=== PATIENT | female | born 1975 | race Caucasian/White ===

== ENCOUNTER 2020-05-12 00:36 | Emergency (ER) | payer BC ==
[~2020-05-12] VITALS: Ht 152.4 cm; Wt 65.5 kg
[2020-05-12] MEDS ORDERED: ondansetron/PF 4mg/2ml inj IV ONE (02:45)
[2020-05-12] MEDS ORDERED: morphine 4 MG/ML inj SYRINge IV ONE (02:45)
[2020-05-12 03:10] LABS: BASOPHILS # (AUTO) 0.1 X10'3 (0-0.2); BASOPHILS % (AUTO) 0.7 % (0-1); EOSINOPHILS # (AUTO) 0.3 X10'3 (0-0.9); EOSINOPHILS % (AUTO) 2.9 % (0-6); HEMATOCRIT 30.3 % (35.0-45.0); HEMOGLOBIN 9.8 g/dl (12.0-16.0); LYMPHOCYTES # (AUTO) 1.1 X10'3 (1.1-4.8); LYMPHOCYTES % (AUTO) 10.1 % (21-51); MEAN CORPUSCULAR HEMOGLOBIN 28.6 PG (27.0-31.0); MEAN CORPUSCULAR HGB CONC 32.3 g/dL (33.0-36.5); MEAN CORPUSCULAR VOLUME 88.6 FL (78-98); MEAN PLATELET VOLUME 7.1 FL (7.4-10.4); MONOCYTES # (AUTO) 0.9 X10'3 (0-0.9); MONOCYTES % (AUTO) 7.9 % (2-12); NEUTROPHILS # (AUTO) 8.7 X10'3 (1.8-7.7); NEUTROPHILS % (AUTO) 78.4 % (42-75); PLATELET COUNT 506 X10'3 (140-440); RED BLOOD COUNT 3.42 X10'6 (4.20-5.60); RED CELL DISTRIBUTION WIDTH 15.7 % (11.5-14.5); WHITE BLOOD COUNT 11.1 X10'3 (4.5-11.0)
[2020-05-12] MEDS ORDERED: normal saline 1000ml 1,000 ML IV ONE (03:20)
[2020-05-12] MEDS ORDERED: metoclopramide 5 mg/ml inj IV ONE (03:25)
[2020-05-12] MEDS ORDERED: PROC-8 PO (04:11)
[2020-05-12 04:34] VITALS: BP 140/96
== END 2020-05-12 04:30 | disposition home or self-care (01) ==
LOC: ER 00:37
DX: M25.562 Pain in left knee (principal); Z48.89 Encounter for other specified surgical aftercare; R53.81 Other malaise; Z88.5 Allergy status to narcotic agent; Z88.8 Allergy status to other drugs, medicaments and biological substances; Z79.899 Other long term (current) drug therapy
CPT/HCPCS: 36415; 85025; 85651; 86140; 96374; 96375; 99284; J2270; J2405; J2765; J7030

== ENCOUNTER 2020-05-30 00:06 | Emergency (ER) | payer BC ==
[~2020-05-30] VITALS: Ht 152.4 cm; Wt 68.2 kg
[~2020-05-30 00:06] MED LIST: PROC-8 PO
--- NOTE | 2020-05-30 00:22 | NUR ---
pt states she took 15 mg percoset at approx 2140. She also states she had an infusion of ceftriaxone and Vancomycin today via PICC line.
[2020-05-30] MEDS ORDERED: normal saline 1000ML IV soln IV ONE (00:40)
[2020-05-30] MEDS ORDERED: ketorolac trometh. 30mg/ml inj. IV ONE (00:45)
[2020-05-30 01:43] LABS: BASOPHILS # (AUTO) 0.1 X10'3 (0-0.2); BASOPHILS % (AUTO) 0.6 % (0-1); EOSINOPHILS # (AUTO) 0.4 X10'3 (0-0.9); EOSINOPHILS % (AUTO) 4.3 % (0-6); HEMATOCRIT 29.7 % (35.0-45.0); LYMPHOCYTES # (AUTO) 0.9 X10'3 (1.1-4.8); LYMPHOCYTES % (AUTO) 9.7 % (21-51); MEAN CORPUSCULAR HEMOGLOBIN 28.7 PG (27.0-31.0); MEAN CORPUSCULAR HGB CONC 33.5 g/dL (33.0-36.5); MEAN CORPUSCULAR VOLUME 85.7 FL (78-98); MEAN PLATELET VOLUME 8.2 FL (7.4-10.4); MONOCYTES % (AUTO) 10.8 % (2-12); NEUTROPHILS # (AUTO) 6.7 X10'3 (1.8-7.7); NEUTROPHILS % (AUTO) 74.6 % (42-75); PLATELET COUNT 383 X10'3 (140-440); RED BLOOD COUNT 3.47 X10'6 (4.20-5.60); RED CELL DISTRIBUTION WIDTH 14.4 % (11.5-14.5)
[2020-05-30 01:56] LABS: ALANINE AMINOTRANSFERASE 92 U/L (12-78); ALBUMIN 3.2 G/DL (3.4-5.0); ALBUMIN/GLOBULIN RATIO 1.1 (1.1-1.5); ALKALINE PHOSPHATASE 125 IU/L (46-116); ANION GAP 8 (8-16); ASPARTATE AMINO TRANSFERASE 78 U/L (10-37); BILIRUBIN,TOTAL 0.2 MG/DL (0.1-1.0); BLOOD UREA NITROGEN 13 MG/DL (7-18); BUN/CREATININE RATIO 14.3 (6.6-38.0); C-REACTIVE PROTEIN 2.58 MG/DL (0.0-0.5); CALCIUM 8.6 MG/DL (8.5-10.1); CHLORIDE 106 MMOL/L (99-107); CREATININE 0.91 MG/DL (0.40-0.90); GLUCOSE 108 MG/DL (70-104); MAGNESIUM 1.9 MG/DL (1.5-2.4); POTASSIUM 3.8 MMOL/L (3.5-5.1); SODIUM 139 MMOL/L (135-145); TOTAL CARBON DIOXIDE 25.2 MMOL/L (24-32); eGFR 67 ML/MIN
[2020-05-30 02:00] VITALS: BP 134/84
[2020-05-30] MEDS ORDERED: iohexol 300mg/ml 100ml inj. ONE (03:25)
[2020-05-30] MEDS ORDERED: piperacillin/tazo 4.5gm/100ml 100 ML IV STA (03:28)
--- NOTE | 2020-05-30 03:58 | NUR ---
pt is has questions about the antibiotic ordered and would like to speak to the Dr. before administration.
[2020-05-30 04:00] LABS: CLARITY,URINE CLEAR (Clear); COLOR,URINE YELLOW (Yellow); GLUCOSE, URINE NEGATIVE (Neg); KETONES,URINE NEGATIVE (Neg); LEUKOCYTE ESTERASE ,URINE NEGATIVE (Neg); NITRITES, URINE NEGATIVE (Neg); OCCULT BLOOD,URINE NEGATIVE (Neg); PH,URINE 7.5 (4.8-8.0); PROTEIN,URINE NEGATIVE (Neg); UROBILINOGEN,URINE 0.2 E.U/dL (0.2-1.0)
[2020-05-30 04:11] LABS: UA COLLECTION TYPE CLN CATCH MIDSTREAM
[2020-05-30 04:29] LABS: URINE HCG NEGATIVE (NEG)
--- NOTE | 2020-05-30 04:45 | NUR ---
MD notified that pt had questions. Pt declined antibiotic recommended by MD and elected to leave AMA. Risks and benefits discussed with patient and pt was reassured that she could return if needed. AMA form and discharge signed. IV removed, cannula intact. Pt amublated out of ER to POV
[2020-05-30] MEDS ORDERED: piperacillin/tazo 4.5gm/100ml 100 ML IV ONE (08:00)
== END 2020-05-30 04:52 | disposition left against medical advice (07) ==
LOC: ER 00:07
DX: T84.54XA Infection and inflammatory reaction due to internal left knee prosthesis, initial encounter (principal); Z98.890 Other specified postprocedural states; Z88.5 Allergy status to narcotic agent; Z88.8 Allergy status to other drugs, medicaments and biological substances; Z79.899 Other long term (current) drug therapy; Y83.9 Surgical procedure, unspecified as the cause of abnormal reaction of the patient, or of later complication, without mention of misadventure at the time of the procedure; Y92.89 Other specified places as the place of occurrence of the external cause
CPT/HCPCS: 36415; 71045; 73701; 80053; 81003; 81025; 83605; 83735; 84145; 85025; 85651; 86140; 87040; 93005; 93971; 96361; 96374; 99285; J1885; J7030; Q9967

== ENCOUNTER 2020-11-30 12:04 | Day surgery (SDC) | payer BC ==
[2020-11-30] VITALS (12 sets, daily range): BP systolic 113–148; BP diastolic 75–94
[~2020-11-30] VITALS: Ht 152.4 cm; Wt 71.0 kg
[~2020-11-30 12:04] MED LIST changes: +VANCOMYCIN INJ 1000 MG in NORMAL SALINE 250ml IV.SOLN IV ONE; +ceFAZolin 2gm in dextrose, iso 50 ML IV ONE; +famotidine 20mg tablet PO ONE; +ringers solution, lacted 1,000 ML IV SCH
[2020-11-30] MEDS ORDERED: ROPIVAcaine inj 250 MG, CloNIDine/PF inj 80 MCG, epiNEPHrine inj 0.5 MG in normal salin... IJ ONE (12:05)
[2020-11-30] MEDS ORDERED: OXYC15TA PO (12:56)
[2020-11-30 12:57] LABS: BASOPHILS % (AUTO) 0.8 % (0-1); EOSINOPHILS # (AUTO) 0.1 X10'3 (0-0.9); EOSINOPHILS % (AUTO) 2.1 % (0-6); LYMPHOCYTES # (AUTO) 1.5 X10'3 (1.1-4.8); MEAN CORPUSCULAR HEMOGLOBIN 27.7 PG (27.0-31.0); MEAN CORPUSCULAR HGB CONC 32.7 g/dL (33.0-36.5); MEAN CORPUSCULAR VOLUME 84.6 FL (78-98); MEAN PLATELET VOLUME 7.8 FL (7.4-10.4); MONOCYTES # (AUTO) 0.4 X10'3 (0-0.9); MONOCYTES % (AUTO) 5.5 % (2-12); NEUTROPHILS # (AUTO) 4.5 X10'3 (1.8-7.7); NEUTROPHILS % (AUTO) 68.6 % (42-75); PRE OP HEMOGLOBIN 12.8 g/dL (12.0-16.0); PRE OP PLATELET COUNT 421 X10'3 (140-440); RED BLOOD COUNT 4.61 X10'6 (4.20-5.60); RED CELL DISTRIBUTION WIDTH 14.1 % (11.5-14.5)
[2020-11-30 13:09] LABS: ALBUMIN 3.7 G/DL (3.4-5.0); ALBUMIN/GLOBULIN RATIO 1.1 (1.1-1.5); ALKALINE PHOSPHATASE 133 IU/L (46-116); BLOOD UREA NITROGEN 13 MG/DL (7-18); BUN/CREATININE RATIO 16.5 (6.6-38.0); CALCIUM 9.1 MG/DL (8.5-10.1); CHLORIDE 106 MMOL/L (99-107); CREATININE 0.79 MG/DL (0.40-0.90); PRE OP ALT 21 U/L (30-65); PRE OP ANION GAP 8 (8-16); PRE OP AST 19 U/L (10-37); PRE OP BILIRUB, TOTAL 0.4 MG/DL (0.0-1.0); PRE OP GLUCOSE 96 MG/DL (70-104); PRE OP POTASSIUM 4.2 MMOL/L (3.4-5.1); PRE OP SODIUM 141 MMOL/L (135-145); TOTAL CARBON DIOXIDE 26.7 MMOL/L (24-32); TOTAL PROTEIN 7.2 G/DL (6.4-8.2); eGFR 78 ML/MIN
[2020-11-30] MEDS ORDERED: scopolamine 1.5mg patch.TD72 TD ONE (14:14)
[2020-11-30] MEDS ORDERED: midazolam 2 mg/2 ml injection ONE (15:36)
[2020-11-30] MEDS ORDERED: fentaNYL/PF 50MCG/1 ML 2ML syringe ONE (15:36)
[2020-11-30] MEDS ORDERED: dexamethasone sod phosphate 4mg/ml inj. ONE (16:10)
[2020-11-30] MEDS ORDERED: ROPIVAcaine 0.5% (5mg/ml) 30ml vial ONE (16:10)
[2020-11-30] MEDS ORDERED: LIDOcaine 1%/PF 5ML 10 MG/ML VIAL ONE (16:10)
[2020-11-30] MEDS ORDERED: propofol inj 20 ML IV ONE (16:10)
[2020-11-30] MEDS ORDERED: ondansetron/PF 4mg/2ml inj ONE (16:10)
--- NOTE | 2020-11-30 16:10 | NUR ---
ADMITTED TO PACU FROM OR ACCOMPANIED BY ANESTHESIA. INTIAL PHYSICAL ASSESSMENT DONE AND RECORDED. REPORT RECEIVED FROM ANESTHESIA.
[2020-11-30] MEDS ORDERED: meperidine/PF 25mg/ml syringe IV PRN ×2 (16:20)
[2020-11-30] MEDS ORDERED: HYDROmorphone/PF 0.2 MG/ML SYRINGE IV PRN ×2 (16:20)
[2020-11-30] MEDS ORDERED: ondansetron/PF 4mg/2ml inj IV PRN (16:20)
[2020-11-30] MEDS ORDERED: ringers solution, lacted 1,000 ML IV SCH (16:20)
--- NOTE | 2020-11-30 18:00 | NUR ---
DISCHARGE CRITERIA MET, DISCHARGE INSTRUCTIONS GIVEN, DEMONSTRATES VERBAL UNDERSTANDING. DISCHARGED HOME IN GOOD CONDITION.
== END 2020-11-30 18:00 | disposition home or self-care (01) ==
LOC: PAS 12:04
PROVIDERS: ATTEND Orthopaedic Surgery
DX: M24.662 Ankylosis, left knee (principal); M19.90 Unspecified osteoarthritis, unspecified site; G89.18 Other acute postprocedural pain; Z88.6 Allergy status to analgesic agent; Z88.8 Allergy status to other drugs, medicaments and biological substances; Z98.890 Other specified postprocedural states; Z90.710 Acquired absence of both cervix and uterus
CPT/HCPCS: 27570; 36415; 64447; 80053; 85025; 87426; J1100; J2250; J2405; J2704; J3010; A4618; J2795; J7120